=== PATIENT | male | born 1985 | race Caucasian/White ===

== ENCOUNTER 2019-09-12 23:47 | Emergency (ER) | payer BC ==
[~2019-09-12] VITALS: Ht 172.7 cm; Wt 77.0 kg
[2019-09-13] MEDS ORDERED: ETOMIDATE 2MG/ML 10ML VIAL IV ONE (01:00)
[2019-09-13] MEDS ORDERED: ONDANSETRON HCL 4MG/2ML INJ IV ONE (01:00)
[2019-09-13] MEDS ORDERED: MORPHINE SULFATE 4 MG/ML CPJ (NOT FOR IM USE) IV ONE (02:45)
[2019-09-13 03:50] VITALS: BP 118/61
== END 2019-09-13 03:50 | disposition home or self-care (01) ==
LOC: ER 23:47
DX: S43.014A Anterior dislocation of right humerus, initial encounter (principal); F12.10 Cannabis abuse, uncomplicated; F17.210 Nicotine dependence, cigarettes, uncomplicated; X58.XXXA Exposure to other specified factors, initial encounter; Y93.89 Activity, other specified; Y92.89 Other specified places as the place of occurrence of the external cause
CPT/HCPCS: 23650; 73030; 96374; 99152; 99285; J2405; J3490